=== PATIENT | male | born 1950 | race Caucasian/White ===

== ENCOUNTER 2017-08-09 18:07 | Emergency (ER) | payer MEDICARE, OTHER ==
[2017-08-09] MEDS ORDERED: amLODIPine BESYLATE 5 MG TAB PO ONE (18:37)
[2017-08-09] MEDS ORDERED: LABETALOL INJ 5 MG/ML VIAL IV ONE (18:37)
--- NOTE | 2017-08-09 18:37 | ED.PDOC ---
History of Present Illness - General Chief Complaint: Head Injury Stated Complaint: head injury Time Seen by Provider: 08/09/17 18:36 Source: patient, family - son Exam Limitations: no limitations - History of Present Illness Initial Comments: Rodrigo Plaza 66 y/o male stated pulling out tree limb which accidentally fell on top of his head with scalp bleeding noted and abrasions.No LOC,speech fluent , no blurry vision,no dizziness,mild dull headache on top of head,no nausea/ vomiting.Brought by son to ER.Has history of hypetension but not compliant with medications,prefers to take garlic for his high blood pressure.His las check up was a year ago. Occurred: just prior to arrival Severity: moderate Head Injury Location: occipital Method of Injury: other - see hpi Loss of Consciousness: no loss of consciousness Associated Symptoms: other - see hpi Allergies/Adverse Reactions: Allergies NO KNOWN ALLERGY Allergy (Unverified 10/31/14 08:20) Home Medications: Ambulatory Orders Amlodipine Besylate 10 mg PO ACBK #30 tab 08/09/17 Review of Systems - Review of Systems Constitutional: States: no symptoms reported EENTM: States: no symptoms reported Respiratory: States: no symptoms reported Gastrointestinal/Abdominal: States: no symptoms reported Genitourinary: States: frequency Musculoskeletal: States: see HPI Neurological: States: no symptoms reported All other Systems: Reviewed and Negative, No Change from Baseline Past Medical History (General) - Patient Medical History Hx Seizures: No Hx Stroke: No Hx Asthma: No Hx of COPD: No Hx Cardiac Disorders: No Hx Congestive Heart Failure: No Hx Pacemaker: No Hx Hypertension: Yes - only when stressed Hx Diabetes: No Hx MRSA: No Surgical History: other - knee surgery - Vaccination History Immunizations Up to Date: No - Social History Hx Tobacco Use: Yes Years Tobacco Use: 40 Cigarettes Packs Per Day: 20 Hx Alcohol Use: No Hx Substance Use: No Hx Physical Abuse: No Hx Emotional Abuse: No - Activities of Daily Living Grooming Ability: Independent Eating (Feeding) Ability: Independent Toileting Ability: Independent Family Medical History - Family History Father Hx Family Hypertension: Yes Hx Family Cancer: Yes - mom-ovarian;sister-throat Physical Exam - Physical Exam General Appearance: Alert, Comfortable, No apparent distress Head Injury: other - abrasions scalp Eye Exam: bilateral normal ENT Exam: hearing grossly normal, no evidence of ENT injury, no dental injury Neck Exam: non-tender, full range of motion, normal alignment, normal inspection , other - bilateral carotid bruits Cardiovascular/Respiratory: regular rate, rhythm, no M/R/G, normal peripheral pulses Gastrointestinal/Abdominal: non tender, soft, no organomegaly, no pulsatile mass Back Exam: no CVA tenderness, no vertebral tenderness Extremity: no pedal edema, no calf tenderness Mental Status: alert, 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 Exam: normal hearing, normal speech, PERRL Coordination/Gait: normal gait, negative Romberg's sign Motor/Sensory: no motor deficit, no sensory deficit Skin Exam: normal color, warm/dry, other - rough skin rash both ears ,with dark looking skin lesion upper back - Elizabeth Coma Score Best Eye Response (Elizabeth): (4) open spontaneously Best Verbal Response (Elizabeth): (5) oriented Best Motor Response (Felicia): (6) obeys commands Progress - Progress Progress: 08/09/17 19:23 Vital Signs - 8 hr 08/09/17 18:36 Temperature 98.3 F Pulse Rate [ 65 Right Brachial] Respiratory 20 Rate Blood Pressure 189/96 [Right Arm] O2 Sat by Pulse 96 Oximetry 08/09/17 19:39 Vital Signs - 8 hr 08/09/17 18:36 Temperature 98.3 F Pulse Rate [ 65 Right Brachial] Respiratory 20 Rate Blood Pressure 189/96 [Right Arm] O2 Sat by Pulse 96 Oximetry BP- 169/76;HR-55 - Results/Orders Results/Orders: Laboratory Results - last 24 hr 08/09/17 08/09/17 08/09/17 18:47 18:47 19:00 WBC 9.9 RBC 4.82 Hgb 15.4 Hct 43.5 MCV 90.2 MCH 31.9 H MCHC 35.4 RDW 13.4 Plt Count 216 MPV 9.2 Absolute Neuts (auto) 5.90 Absolute Lymphs (auto) 2.90 Absolute Monos (auto) 0.70 Absolute Eos (auto) 0.20 Absolute Basos (auto) 0.10 Neutrophils % 59.6 Lymphocytes % 29.2 Monocytes % 7.5 Eosinophils % 2.4 Basophils % 1.3 Sodium 141 Potassium 4.2 Chloride 105 Carbon Dioxide 27 Anion Gap 13.2 BUN 19 H Creatinine 1.08 BUN/Creatinine Ratio 17.6 Random Glucose 105 Serum Osmolality 283.9 Calcium 9.8 Total Bilirubin 0.7 AST 21 ALT 23 Alkaline Phosphatase 59 Serum Total Protein 7.4 Albumin 4.6 Globulin 2.8 Albumin/Globulin Ratio 1.6 Urine Color Yellow Urine Appearance Clear Urine pH 5.5 Ur Specific [place] 1.020 Urine Protein Negative Urine Glucose (UA) Negative Urine Ketones Negative Urine Blood Negative Urine Nitrite Negative Urine Bilirubin Negative Urine Urobilinogen 0.2 Ur Leukocyte Esterase Negative Urine RBC 0-1 Urine WBC 0-1 Ur Epithelial Cells 0-1 Urine Bacteria 0 Departure - Departure Clinical Impression: Scalp abrasion, non-infected, Actinic keratoses, Bilateral carotid bruits, Skin lesion of back Scalp contusion Qualifiers: Encounter type: initial encounter Qualified Code(s): S00.03XA - Contusion of scalp, initial encounter Hypertension Qualifiers: Hypertension type: unspecified Qualified Code(s): I10 - Essential (primary) hypertension Time of Disposition: 19:32 Disposition: Discharge to Home or Self Care Departure Forms: ED Discharge - Pt. Copy, Patient Portal Self Enrollment Instructions: Treatments for High Blood Pressure: More Than Just Taking a Pill , High Blood Pressure, DI for Closed Head Injury, DI for Abrasion Referrals: Rodolfo Madrid MD [Primary Care Provider] - 1-2 Weeks Prescriptions: Amlodipine Besylate 10 mg PO ACBK #30 tab Home Medications: Ambulatory Orders Amlodipine Besylate 10 mg PO ACBK #30 tab 08/09/17 Additional Instructions: FOLLOW UP WITH YOUR -Dr. Madrid 11 Aug 2017 call for your appointment;Need to take Baby Aspirin -81 mg daily(OTC);Return to er as needed
[2017-08-09] MEDS ORDERED: TETANUS,DIPHTHERIA,PERTUSSIS 1 EA SYG IM ONE (18:38)
[2017-08-09 18:44] VITALS: TEMP 98.3
[2017-08-09] MEDS ORDERED: CHLORHEXIDINE GLUCONATE 4 % 15 ML UD TOP ONE (19:10)
[2017-08-09] MEDS ORDERED: NEOMYCIN-BACITRACIN-POLYMYXIN 0.9 GM UD TOP ONE (19:21)
[2017-08-09 19:43] VITALS: O2SAT 97
[2017-08-09 19:57] VITALS: BP 166/82
== END 2017-08-09 19:57 | disposition home or self-care (01) ==
LOC: ER 18:07
DX: S00.03XA Contusion of scalp, initial encounter (principal); S00.01XA Abrasion of scalp, initial encounter; L98.9 Disorder of the skin and subcutaneous tissue, unspecified; L57.0 Actinic keratosis; I10 Essential (primary) hypertension; F17.210 Nicotine dependence, cigarettes, uncomplicated; Z23 Encounter for immunization; W22.8XXA Striking against or struck by other objects, initial encounter; Y92.9 Unspecified place or not applicable

== ENCOUNTER → 2017-09-17 | Outpatient (CLI) | payer MEDICARE, OTHER ==
--- NOTE | 2017-09-18 09:19 | US ---
EXAM DESCRIPTION: Extremity,Lower Sy Arteries: Ultrasound. CLINICAL HISTORY: ATHEROSCLEROSIS OF [place] ARTERIES OF EXTREMITIES BILAT LEGS COMPARISON: None. TECHNIQUE: Doppler evaluation of the bilateral lower extremity arterial flow waveforms and velocities. FINDINGS: Arterial waveforms in the right lower extremity are biphasic in the right common femoral artery, right proximal superficial femoral artery. Biphasic in the mid and distal right superficial femoral artery, popliteal artery, peroneal artery and posterior tibial artery. Minimally dampened monophasic waveform in the right dorsalis pedis artery. Arterial waveforms in the left lower extremity are monophasic from the left common femoral artery to the left or [place] pedis artery.. Dampened in the right proximal left SFA and in the left calf vessels. Comments: No stenoses or collateral flow. Velocities in the left lower extremity are significantly decreased compared to the right lower extremity.. IMPRESSION: 1. Monophasic flow decreased velocity throughout the left lower extremity arterial system. This suggests a stenosis or significant narrowing proximal to the left common femoral artery. 2. Suggestion of significant narrowing are stenotic lesion in the right anterior tibial artery. Consider CTA correlation. Electronically signed by: Garett Shaw MD 09/18/2017 9:18 AM CDT
== END ==
LOC: US 11:00
PROVIDERS: ATTEND Family Medicine
DX: I70.203 Unspecified atherosclerosis of native arteries of extremities, bilateral legs (principal)

== ENCOUNTER 2017-10-31 20:38 | Emergency (ER) | payer MEDICARE, OTHER ==
[2017-10-31] MEDS ORDERED: cloNIDine HCL 0.1 MG TAB PO ONE (21:03)
--- NOTE | 2017-10-31 21:06 | ED.PDOC ---
History of Present Illness - General Chief Complaint: Blood Pressure Problem Stated Complaint: Uncontrolled hypertension Time Seen by Provider: 10/31/17 21:02 Source: patient, family Exam Limitations: no limitations - History of Present Illness Initial Comments: patient comes in today with asymptomatic hypertension. Patient stated that on the 16th of this month he was seen for her usual follow-up with his doctor. He was given a new blood pressure pill and although he was not explicitly told to stop the first pill he did. Patient stated he felt fine before days ago happened to check his blood pressure and it was greater than 200/100. Since then it has not gone down. He did take 2 doses of the Norvasc he had previously been prescribed but his blood pressure has not decreased. He states he feels okay. He's had no chest pain, shortness of breath, vision change, nausea or vomiting. Today he is asymptomatic and in his usual health. The patient has a past medical history of coronary artery disease, peripheral artery disease, diabetes mellitus, hypertension, hyperlipidemia, and OA. He has not changed anything in his diet or activities Timing/Duration: 1 week Severity: severe Improving Factors: nothing Worsening Factors: nothing Associated Symptoms: denies symptoms Allergies/Adverse Reactions: Allergies NO KNOWN ALLERGY Allergy (Unverified 10/31/14 08:20) Home Medications: Ambulatory Orders Amlodipine Besylate 10 mg PO ACBK #30 tab 08/09/17 Review of Systems - Review of Systems Constitutional: States: no symptoms reported. Denies: fever, weakness EENTM: States: no symptoms reported. Denies: blurred vision Respiratory: States: no symptoms reported. Denies: short of breath, wheezing Cardiology: States: no symptoms reported. Denies: chest pain, edema, palpitations Gastrointestinal/Abdominal: States: no symptoms reported. Denies: abdominal pain, nausea, vomiting Musculoskeletal: States: no symptoms reported Skin: States: no symptoms reported Neurological: States: no symptoms reported. Denies: headache, numbness, paresthesia Past Medical History (General) - Patient Medical History Hx Seizures: No Hx Stroke: No Hx Asthma: No Hx Cardiac Disorders: Yes Hx Congestive Heart Failure: No Hx Pacemaker: No Hx Hypertension: Yes Hx Diabetes: Yes Hx MRSA: No - Vaccination History Hx Tetanus, Diphtheria Vaccination: - unknown Hx Influenza Vaccination: No Hx Pneumococcal Vaccination: No - Social History Hx Tobacco Use: Yes Hx Alcohol Use: No Hx Substance Use: No Hx Physical Abuse: No Hx Emotional Abuse: No Family Medical History - Family History Father Hx Family Hypertension: Yes Hx Family Cancer: Yes - mom-ovarian;sister-throat Physical Exam - Physical Exam General Appearance: Alert, No apparent distress Eye Exam: bilateral normal Ears, Nose, Throat: normal ENT inspection, normal pharynx Neck: non-tender, full range of motion, supple, normal inspection, carotid bruit Respiratory: chest non-tender, lungs clear, normal breath sounds, no respiratory distress Cardiovascular/Chest: normal peripheral pulses, regular rate, rhythm, no edema, no gallop, no JVD, no murmur Peripheral Pulses: radial,right: 2+, radial,left: 2+, posterior tibialis,right: 2+, posterior tibialis,left: 2+ Gastrointestinal/Abdominal: normal bowel sounds, non tender, soft, no organomegaly, no pulsatile mass Neurologic: alert, oriented x 3 Progress - Progress Progress: 10/31/17 21:35 10/31/17 21:03 TROPONIN-I Stat 10/31/17 21:15 EKG STAT Laboratory Results WBC 9.9 K/mm3 (4.8-10.8) 10/31/17 21:03 RBC 4.70 M/mm3 (4.70-6.10) 10/31/17 21:03 Hgb 14.5 gm/dL (14.0-18.0) 10/31/17 21:03 Hct 43.1 % (42.0-52.0) 10/31/17 21:03 MCV 91.6 fl (80.0-94.0) 10/31/17 21:03 MCH 30.7 pg (27.0-31.0) 10/31/17 21:03 MCHC 33.5 g/dL (33.0-37.0) 10/31/17 21:03 RDW 13.0 % (11.5-14.5) 10/31/17 21:03 Plt Count 253 K/mm3 (130-400) 10/31/17 21:03 MPV 8.8 fl (7.40-10.4) 10/31/17 21:03 Absolute Neuts (auto) 6.10 K/uL (1.8-6.8) 10/31/17 21:03 Absolute Lymphs (auto) 2.20 K/uL (1.0-3.4) 10/31/17 21:03 Absolute Monos (auto) 0.60 K/uL (0.2-0.8) 10/31/17 21:03 Absolute Eos (auto) 0.90 K/uL (0.0-0.4) H 10/31/17 21:03 Absolute Basos (auto) 0.10 K/uL (0.0-0.1) 10/31/17 21:03 Neutrophils % 61.6 % (42.0-78.0) 10/31/17 21:03 Lymphocytes % 21.8 % (20.0-50.0) 10/31/17 21:03 Monocytes % 6.4 % (2.0-9.0) 10/31/17 21:03 Eosinophils % 9.0 % (1.0-5.0) H 10/31/17 21:03 Basophils % 1.2 % (0.0-2.0) 10/31/17 21:03 Sodium 137 mmol/L (135-145) 10/31/17 21:03 Potassium 3.7 mmol/L (3.6-5.0) 10/31/17 21:03 Chloride 102 mmol/L (101-111) 10/31/17 21:03 Carbon Dioxide 25 mmol/L (21-31) 10/31/17 21:03 Anion Gap 13.7 (12-18) 10/31/17 21:03 BUN 23 mg/dL (7-18) H 10/31/17 21:03 Creatinine 1.65 mg/dL (0.6-1.3) H 10/31/17 21:03 BUN/Creatinine Ratio 13.9 (10-20) 10/31/17 21:03 Random Glucose 170 mg/dL (70-105) H 10/31/17 21:03 Serum Osmolality 281.5 mOsm/L (275-295) 10/31/17 21:03 Calcium 9.5 mg/dL (8.4-10.2) 10/31/17 21:03 Total Bilirubin 0.8 mg/dL (0.2-1.0) 10/31/17 21:03 AST 26 IU/L (10-42) 10/31/17 21:03 ALT 22 IU/L (10-60) 10/31/17 21:03 Alkaline Phosphatase 84 IU/L (42-121) 10/31/17 21:03 Serum Total Protein 7.7 gm/dL (6.4-8.2) 10/31/17 21:03 Albumin 4.4 g/dl (3.2-5.5) 10/31/17 21:03 Globulin 3.3 gm/dL (2.3-3.5) 10/31/17 21:03 Albumin/Globulin Ratio 1.3 (1.1-1.9) 10/31/17 21:03 10/31/17 21:58 Patient doing better with BP down to 188/90. He only took 5 mg this morning of norvasc. Another 5 mg given now and he should re-start norvasc 10 mg tomorrow afternoon. Continue Cavedilol. Follow up on Friday with PCP. Return to ER for chest pain, shortness of breath, vision change, or headache. Return to ER for Dys BP >100 or Sys >180 x 2 checks - EKG/XRAY/CT EKG: Nasir, Sinus, RBBB, no ST T wave changes Comments: L axis deviation HR of 54 Departure - Departure Clinical Impression: Hypertensive urgency Disposition: Discharge to Home or Self Care Condition: Fair Departure Forms: ED Discharge - Pt. Copy, Patient Portal Self Enrollment Instructions: DI for High Blood Pressure Diet: low salt diet Activity: increase activity as tolerated Referrals: Rodolfo Madrid MD [Primary Care Provider] - 1-2 Weeks Home Medications: Ambulatory Orders Amlodipine Besylate 10 mg PO ACBK #30 tab 08/09/17 Additional Instructions: re-start norvasc 10 mg tomorrow afternoon. Continue Cavedilol. Follow up on Friday with PCP. Return to ER for chest pain, shortness of breath, vision change, or headache. Return to ER for Dys BP >100 or Sys >180 x 2 checks
[2017-10-31 21:31] VITALS: TEMP 98.8
[2017-10-31] MEDS ORDERED: amLODIPine BESYLATE 5 MG TAB PO ONE (21:58)
[2017-10-31 22:15] VITALS: BP 185/89; O2SAT 99
== END 2017-10-31 22:16 | disposition home or self-care (01) ==
LOC: ER 20:38
DX: I16.0 Hypertensive urgency (principal); I45.10 Unspecified right bundle-branch block; I10 Essential (primary) hypertension; E11.9 Type 2 diabetes mellitus without complications; Z87.891 Personal history of nicotine dependence; E78.5 Hyperlipidemia, unspecified; M19.90 Unspecified osteoarthritis, unspecified site; I73.9 Peripheral vascular disease, unspecified

== ENCOUNTER → 2017-11-28 | Outpatient (CLI) | payer MEDICARE, OTHER ==
--- NOTE | 2017-11-28 12:35 | US ---
EXAM DESCRIPTION: Renal Arteries CLINICAL HISTORY: 67 years Male, ESSENTIAL HYPERTENSION COMPARISON: None. TECHNIQUE: Arterial and venous Doppler ultrasound evaluation of the abdominal aorta and renal vessels performed. FINDINGS: The peak systolic velocity of the abdominal aorta is 97.2 cm. Peak systolic velocity of the right main renal artery is 168.8 cm/s. The renal artery to aortic ratio is 1.7. Systolic velocity of the proximal left main renal artery is 275 cm/s with renal artery to aortic ratio of 2.8. No obvious hydronephrosis is seen. IMPRESSION: Elevated velocity and ratio in the left main renal artery is seen. Elevated velocity suggests greater than 60% stenosis although the renal artery to aortic ratio suggest less than 60% stenosis. Consider further evaluation with CTA imaging. No ultrasound evidence of right renal artery stenosis.. Electronically signed by: Mukul Farley MD 11/28/2017 12:34 PM CDT
== END ==
LOC: US 09:28
PROVIDERS: ATTEND Family Medicine
DX: I70.213 Atherosclerosis of native arteries of extremities with intermittent claudication, bilateral legs (principal); I10 Essential (primary) hypertension

== ENCOUNTER 2017-12-30 19:22 | Emergency (ER) | payer MEDICARE, OTHER ==
--- NOTE | 2017-12-30 19:56 | ED.PDOC ---
History of Present Illness - General Chief Complaint: Neuro Symptoms/Deficits Stated Complaint: confused, high bp Time Seen by Provider: 12/30/17 19:44 Source: patient, family Exam Limitations: no limitations - History of Present Illness Initial Comments: STARTING YESTERDAY, HIS SON NOTICED AMS, CONFUSION, NOT HIS USUAL LUCID SELF. PT STATES HE WAS FEELING "FUNNY IN THE HEAD" EARLIER TODAY BUT FEELS BACK TO NL NOW. PT ALSO STATES HE FEELS SOME SLIGHT DISCOMFORT IN THE CHEST X 2 D. Timing/Duration: constant Severity: moderate, severe Improving Factors: nothing Worsening Factors: nothing Associated Symptoms: chest pain Allergies/Adverse Reactions: Allergies NO KNOWN ALLERGY Allergy (Unverified 10/31/14 08:20) Home Medications: Ambulatory Orders Amlodipine Besylate 10 mg PO ACBK #30 tab 08/09/17 Clonidine HCl 0.1 mg PO BID PRN #10 tab 12/30/17 Review of Systems - Review of Systems Constitutional: Denies: chills, diaphoresis, fever, weakness EENTM: Denies: blurred vision, ear pain, nose congestion Respiratory: Denies: cough, short of breath, wheezing Cardiology: States: chest pain. Denies: palpitations Gastrointestinal/Abdominal: Denies: abdominal pain, nausea, vomiting Genitourinary: States: no symptoms reported Musculoskeletal: States: no symptoms reported Skin: States: no symptoms reported Neurological: Denies: headache, paresthesia Endocrine: States: no symptoms reported Hematologic/Lymphatic: States: no symptoms reported All other Systems: Reviewed and Negative Past Medical History (General) - Patient Medical History Hx Seizures: No Hx Stroke: No Hx Asthma: No Hx of COPD: No Hx Cardiac Disorders: Yes - stents Hx Congestive Heart Failure: No Hx Pacemaker: No Hx Hypertension: Yes Hx Diabetes: Yes Hx MRSA: No - Vaccination History Hx Tetanus, Diphtheria Vaccination: - unknown Hx Influenza Vaccination: No Hx Pneumococcal Vaccination: No - Social History Hx Tobacco Use: Yes Hx Alcohol Use: No Hx Substance Use: No Hx Physical Abuse: No Hx Emotional Abuse: No Family Medical History - Family History Father Hx Family Hypertension: Yes Hx Family Cancer: Yes - mom-ovarian;sister-throat Physical Exam - Physical Exam General Appearance: Alert, Well Groomed Eye Exam: bilateral normal Ears, Nose, Throat: hearing grossly normal, normal ENT inspection, normal pharynx Neck: non-tender, full range of motion, supple, normal inspection Respiratory: chest non-tender, lungs clear, normal breath sounds, no respiratory distress Cardiovascular/Chest: regular rate, rhythm, no murmur Peripheral Pulses: radial,right: 2+, radial,left: 2+ Gastrointestinal/Abdominal: normal bowel sounds, non tender, soft, no organomegaly, no pulsatile mass Back Exam: normal inspection, no CVA tenderness Extremity: normal range of motion, non-tender, normal inspection, no pedal edema , no calf tenderness Neurologic: area director II-XII nml as tested, no motor/sensory deficits - MOTOR NL BUE AND BLE. , alert, normal mood/affect, oriented x 3, other - GCS 15 Skin Exam: normal color, warm/dry Lymphatic: no adenopathy Progress - Progress Progress: 12/30/17 21:14 W/U NEG FOR STROKE AND NC. CARDIAC ENZ NEG (ONLY 1 SET NEEDED SINCE CHEST DISCOMFORT X [address] HEAD NO ACUTE PROCESS. CXR NEG COAGS WNL. CBC MILD ANEMIA, NORMOCYTIC, NORMOCHROMIC. EKG BIFASCICULAR BLOCK. NO ACUTE ST CHANGES. CMP SHOWS MILD ARF WITH CR 1.58 (HIS PREVIOUS RANGE 1.08 - 1.65) AND ELEV BUN 21 (HIS PREVIOUS RANGE 19 - 2), THUS GIVING 500 ML BOLUS. PT TO F/U W/ PCP IN 1 WK TO RECHECK KIDNEY FUNCTION TESTS TO ENSURE IMPROVING. UA - BLOOD. THUS F/U W/ PCP TO ENSURE RESOLVES. I DO NOT FIND ANY CLEAR CAUSE OF HIS SON'S PERCEPTION OF CONFUSION AND CHEST DISCOMFORT, OTHER THAN KNOWN CHRONIC HTN. I WILL TX IT TODAY WITH CLONIDINE AND UNTIL HIS PCP F/U. SBP DECREASED FROM 180'S TO 160'S WITH CLONIDINE. I WILL HAVE PT F/U WITH PCP REGARDING HIS KNOWN HTN. 12/30/17 21:46 ON RE-EXAMINATION, BOTH SON AND FATHER FEEL HIS MENTATION HAVE IMPROVED GREATLY SINCE EARLIER TODAY. THE PT HAD A COMPLETELY NL MENTAL EXAM WITH ME AND NL MOTOR/GAIT SO HE IS SAFE FOR DC TO HOME AFTER BOLUS, WITH CLOSE F/U WITH PCP. . 12/30/17 21:49 Departure - Departure Clinical Impression: Mental status, decreased, Discomfort in chest, Anemia, mild, Acute renal failure, Bifascicular block, Microscopic hematuria, Hypertension Disposition: Discharge to Home or Self Care Condition: Good Departure Forms: ED Discharge - Pt. Copy, Patient Portal Self Enrollment Instructions: High Blood Pressure (DC) Diet: resume usual diet Activity: increase activity as tolerated Referrals: Rodolfo Madrid MD [Primary Care Provider] - 1-5 Days Prescriptions: Clonidine HCl 0.1 mg PO BID PRN #10 tab PRN Reason: Systolic Bp Greater Than 160 Home Medications: Ambulatory Orders Amlodipine Besylate 10 mg PO ACBK #30 tab 08/09/17 Clonidine HCl 0.1 mg PO BID PRN #10 tab 12/30/17 Additional Instructions: It is important that you follow-up with your regular doctor within 1 week to ensure your kidney function is improving, as well as regarding the blood in the urine sample and your elevated blood pressure. Please be sure to drink at least 64 ounces of water per day to keep your kidneys functioning well.
--- NOTE | 2017-12-30 20:21 | RAD ---
EXAM DESCRIPTION: Chest,1 View CLINICAL HISTORY: 67 years Male, confusion COMPARISON: None. FINDINGS: No consolidation. No pneumothorax. No significant pleural effusion. Cardiac silhouette is normal in size. Aortic atherosclerosis is present. Osseous structures are unremarkable. IMPRESSION: No acute findings. Electronically signed by: Luis Prakash MD 12/30/2017 8:20 PM CDT
--- NOTE | 2017-12-30 20:26 | CT ---
EXAM DESCRIPTION: Head CLINICAL HISTORY: confusion, "feels funny in head" COMPARISON: None Available. TECHNIQUE: Multiple helical axial tomographic images were obtained of the head without intravenous contrast. This exam was performed according to our departmental dose-optimization program, which includes automated exposure control, adjustment of the mA and/or kV according to patient size and/or use of iterative reconstruction technique. FINDINGS: Generalized brain volume loss is present. There are patchy areas of low-attenuation in the periventricular and subcortical white matter suggestive of chronic microvascular ischemic changes. 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 There is no acute intracranial hemorrhage. No mass. No midline shift. No ventriculomegaly. Sy-white matter differentiation is maintained. Paranasal sinuses are clear. Mastoid air cells and middle ear spaces are clear. Changes of lens replacement noted. Osseous structures are unremarkable. Surrounding soft tissues are unremarkable. IMPRESSION: No acute intracranial process. Electronically signed by: Luis Prakash MD 12/30/2017 8:25 PM CDT
[2017-12-30 21:01] VITALS: O2SAT 97
[2017-12-30] MEDS ORDERED: SODIUM CHLORIDE 0.9% 500ML 500 ML IVS ONE (21:12)
[2017-12-30] MEDS ORDERED: cloNIDine HCL 0.1 MG TAB PO ONE (21:31)
[2017-12-30 22:22] VITALS: BP 169/77; TEMP 97
== END 2017-12-30 22:22 | disposition home or self-care (01) ==
LOC: ER 19:22
DX: N17.9 Acute kidney failure, unspecified (principal); R41.82 Altered mental status, unspecified; I10 Essential (primary) hypertension; R07.89 Other chest pain; D64.9 Anemia, unspecified; I45.2 Bifascicular block; R31.29 Other microscopic hematuria; E11.9 Type 2 diabetes mellitus without complications; Z95.5 Presence of coronary angioplasty implant and graft; Z87.891 Personal history of nicotine dependence; Z79.899 Other long term (current) drug therapy
CPT/HCPCS: 36415; 70450; 71045; 80048; 80076; 81001; 82550; 82553; 84484; 85025; 85610; 85730; 93005; J7040

== ENCOUNTER → 2018-05-06 | Outpatient (CLI) | payer MEDICARE, OTHER ==
--- NOTE | 2018-05-07 09:27 | CT ---
EXAM DESCRIPTION: Chest w/wo Contrast : Computed Tomography. CLINICAL HISTORY: 67 years Male MELANOMA BACK. Excision one week ago. COMPARISON: None. TECHNIQUE: Spiral-axial scans at 5 x 5 mm intervals through the lungs and thorax without and with IV contrast. 2.5 x 5 mm lung algorithm axial reconstructions. Coronal and sagittal 2.0 Mm reconstructions. No adverse reactions. Total Exam DLP: 1100.1 mGy-cm. This exam was performed according to our departmental dose-optimization program which includes automated exposure control, adjustment of the mA and/or kV according to patient size and/or use of iterative reconstruction technique; to reduce radiation dose to as low as reasonably achievable (ALARA). Nodule measurements under 10 mm are given as mean value of 3 axes diameters. FINDINGS: Lungs and large airways: 2 mm calcified nodule abutting the anterior left apex and pleural. Smaller nodules also anterior and posterior. 3 mm groundglass nodule lateral right upper lobe subpleural region on axial series 7 image 36. Minimal parenchymal scarring in the inferior right middle lobe. No abnormal nodules, no masses, no focal infiltrates. Pleural spaces: Calcifications in the left apex as previously noted. No effusion or pneumothorax. Mediastinum and [place]: No abnormal enlarged lymph nodes or soft tissue masses. Great vessels and Heart: Atherosclerotic calcifications proximal brachiocephalic vessels, aortic arch, descending thoracic aorta, and coronary arteries. Numerous venous collaterals in the upper right arm. Soft tissues of neck base, axillae, and chest wall: 1.3 cm nonenhancing nodule, measured transverse plane, left thyroid lobe. Metallic marker on the skin of the upper back to the right of the spine where biopsy was performed. No subcutaneous mass or abnormal contrast enhancement. Small axillary lymph nodes. Upper abdomen: Uniform enhancement in the included organ segments. 2 cm cyst posterior upper right kidney. Atherosclerotic calcifications aorta, branches of the left renal artery and proximal right renal artery and branches of the SMA and celiac axis. Gallbladder partially visualized. Osseous structures: Cervical spondylosis. Minimal spondylosis in the thoracic spine. No lytic or blastic lesions. Arthrosis left glenohumeral joint. IMPRESSION: Initial staging chest CT scan for patient with melanoma on the back showing no abnormal lung nodules, or soft tissue nodules or enlarged lymph nodes. 3 mm groundglass nodule right upper lobe laterally. [facility] Best Practice guidelines for optional CT scan in 12 month interval. 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
== END ==
LOC: CT 13:00
PROVIDERS: ATTEND Surgery
DX: C43.59 Malignant melanoma of other part of trunk (principal); R91.8 Other nonspecific abnormal finding of lung field

== ENCOUNTER → 2018-12-15 | Outpatient (CLI) | payer MEDICARE, OTHER ==
--- NOTE | 2018-12-15 15:26 | US ---
EXAM DESCRIPTION: Venous,Lower Extremity RT: ULTRASOUND. CLINICAL HISTORY: swelling of lower leg right. Previous vascular procedure left leg one week ago. Also bruising right lower extremity COMPARISON: None Available. TECHNIQUE: Sy-scale and doppler sonographic evaluation of the deep venous system of the right lower extremity. FINDINGS: Right common femoral vein is distended with echogenic material and diminished venous pulse wave and absent color flow with normal augmentation. The vein is also noncompressible. Echogenic material in the right proximal and mid superficial vein, with augmentation, but no venous pulse wave or color Doppler flow. These veins are noncompressible. The distal right superficial femoral vein shows decreased color and compressibility but waveform is present. Normal color flow and normal phasicity and augmentation of the right popliteal vein, peroneal, and posterior tibial vein. These right lower extremity deep veins were completely compressible; normal occlusion with transducer pressure. Sy-scale survey showed no echogenic thrombus within these veins. Large soft tissue mass in the right groin with hypoechoic cortex and central echogenic carter measuring 3.1 x 1.9 x 1.6 cm. Consistent with a lymph node. IMPRESSION: 1. Duplex ultrasound evaluation of the right lower extremity deep venous system showing thrombosis in the right common femoral vein, right proximal and mid superficial femoral vein, and partial thrombus in the distal right superficial femoral vein. The right popliteal vein and veins deep in the calf were normal.. 2. Large 3 cm lymph node in the right groin. CRITICAL COMMUNICATION: The critical value was discussed directly by phone by Dr. Shaw, with Dr. Papo Calderon, at approximately 1505 hours, on December 15, 2018. Electronically signed by: Garett Shaw MD 12/15/2018 3:25 PM CDT
== END ==
LOC: US 14:02
PROVIDERS: ATTEND Internal Medicine Cardiovascular Disease
DX: I82.411 Acute embolism and thrombosis of right femoral vein (principal); R59.0 Localized enlarged lymph nodes

== ENCOUNTER → 2019-01-12 | Outpatient (CLI) | payer MEDICARE, OTHER ==
--- NOTE | 2019-01-12 15:18 | US ---
EXAM DESCRIPTION: Ankle Brachial Index CLINICAL HISTORY: 68 years Male, PAD WITH DARIEN COMPARISON: None. FINDINGS: The left brachial systolic pressure 151 mmHg is utilized for ankle brachial index calculations. Right lower extremity Anterior tibial artery peak systolic pressure of 158 mmHg results in an ankle-brachial index of 1.04 which is normal. The right posterior tibial arterial pressure is lower at 113 mmHg resulting in an ankle brachial index which is abnormal at 0.74 predictive of moderate claudication symptoms. Left lower extremity Left anterior tibial artery peak systolic pressure of 127 mmHg results in an abnormally low ankle-brachial index of 0.84 predictive of mild claudication symptoms. The left posterior tibial artery peak systolic pressure of 134 mmHg results in an ankle-brachial index of 0.88 which is abnormally low predictive of mild claudication symptoms. IMPRESSION: Normal right ankle brachial index (anterior tibial artery) of 1.04. 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 Abnormally low left ankle-brachial index (anterior and posterior tibial arteries) predictive of mild claudication symptoms. Electronically signed by: Kaushik Mccarthy MD 01/12/2019 3:16 PM CDT
== END ==
LOC: US 10:30
PROVIDERS: ATTEND Surgery Vascular Surgery
DX: I70.212 Atherosclerosis of native arteries of extremities with intermittent claudication, left leg (principal); I70.222 Atherosclerosis of native arteries of extremities with rest pain, left leg; I70.201 Unspecified atherosclerosis of native arteries of extremities, right leg

== ENCOUNTER → 2019-04-14 | Outpatient (CLI) | payer MEDICARE, OTHER | LOC: GMAJ 16:44 | PROVIDERS: ATTEND Family Medicine | DX: D50.9 Iron deficiency anemia, unspecified (principal) ==

== ENCOUNTER → 2020-03-29 | Outpatient (CLI) | payer MEDICARE, OTHER | LOC: GMAJ 12:56 | PROVIDERS: ATTEND Family Medicine | DX: Z12.5 Encounter for screening for malignant neoplasm of prostate (principal) ==

== ENCOUNTER → 2020-04-10 | Outpatient (CLI) | payer MEDICARE, OTHER | LOC: GMAJ 10:50 | PROVIDERS: ATTEND Family Medicine | DX: D50.9 Iron deficiency anemia, unspecified (principal) ==

== ENCOUNTER → 2020-05-11 | Outpatient (CLI) | payer MEDICARE, OTHER | LOC: GMAJ 14:19 | PROVIDERS: ATTEND Family Medicine | DX: D50.9 Iron deficiency anemia, unspecified (principal); E78.00 Pure hypercholesterolemia, unspecified ==